=== PATIENT | female | born 1975 | race Caucasian/White ===

== ENCOUNTER 2020-02-29 20:05 | Emergency (ER) | payer OTHER, SELFPAY ==
--- NOTE | ~2020-02-29 | XR_ITS ---
EXAMINATION: XR chest 2V DATE: 02/29/2020 20:45 INDICATION: Chest pain and nausea TECHNIQUE: PA and lateral views of the chest were obtained. COMPARISON: None FINDINGS: Mild elevation of the left hemidiaphragm. Mild biapical pleural-parenchymal scarring. No other airspa ce opacities, pulmonary edema, pleural effusion or pneumothorax. The cardiomediastinal silhouette is normal. Visualized bones and soft tissues are unremarkable. IMPRESSION: 1. Mild elevation of the left hemidiaphragm. No acute cardiopulmonary disease. Reviewed, dictated and finalized at location A.
[2020-02-29 20:13] VITALS: BP 114/79; PULSE 83; RESP 23; TEMP 36.9; O2SAT 99
--- NOTE | 2020-02-29 20:16 | ECG_ITS ---
Measurements Intervals [place] Rate: 93 P: 52 [place]: 152 QRS: 39 QRSD: 78 T: 59 QT: 341 QTc: 425 Interpretive Statements SINUS RHYTHM POSSIBLE LEFT ATRIAL ENLARGEMENT BORDERLINE ECG Electronically Signed On 03-01-2020 6:57:19 CDT by Magdiel Hernandez D.O.
[2020-02-29 20:22] VITALS: BP 114/79; PULSE 87; PULSE 91; RESP 17; O2SAT 99
[2020-02-29] MEDS: ASPIRIN 81 MG CHEWABLE TABLET 324 MG PO (20:44)
--- NOTE | 2020-02-29 20:46 | PC.NURSE ---
Pt currently taken down to CT.
--- NOTE | 2020-02-29 20:57 | ED.CHESTPAIN ---
HPI - Chest Pain General Chief Complaint: Chest Pain Stated Complaint: cp Source: patient and family History of Present Illness HPI narrative: 44 years old white female complaining of sudden onset of diffuse chest discomfort, palpitation, tingling numbness of upper extremities, cold feeling all over her back, getting better on arrival to the emergency room. History of depression/anxiety, smoking, does not drink or abusing alcohol, no family history of coronary artery disease. Patient lift an 80 pound dog yesterday. Patient denies shortness of breath MD complaint: chest discomfort Review of Systems Review of Systems: Narrative: CONSTITUTIONAL: Denies fever, chills, or sweats. EYES: Denies visual changes, redness, or discharge. ENT: Denies rhinorrhea, congestion, sore throat, or otalgia. CARDIOVASCULAR: Denies chest pain, palpitations, or edema. RESPIRATORY: Denies cough or dyspnea. GASTROINTESTINAL: Denies abdominal pain, nausea, vomiting, or diarrhea. GENITOURINARY: Denies dysuria or hematuria. SKIN: Denies rash or itching. MUSCULOSKELETAL: Denies back pain, joint pain, or myalgia. NEUROLOGIC: Denies headache, numbness, or weakness. PSYCHIATRIC: Anxiety and depression PMFSH Social History Social History Gender identity (if verbalized by the patient): Female Exam Narrative: Exam Narrative: General appearance: Well-developed, well-nourished Skin: Normal color Head: Normocephalic, nontraumatic Eyes: Clear conjunctiva ENT: Oropharynx normal, ears normal, nose normal Neck: Supple, nontender Chest and respiratory: Airway patent, no respiratory distress, no accessory muscle use Heart: Regular rate/rhythm Abdomen: Soft, nontender, no organomegaly, quiet bowel sounds Vascular: Normal peripheral pulses, normal capillary refill. Musculoskeletal: Normal range of motion, nontender back Neurologic: Alert and oriented ?3, THERAPIST OCCUPATIONAL is normal as tested, no gross motor deficit Course Course Emergency Course: Resolved Vital Signs Vital signs: Vital Signs Temperature 36.9 C 02/29/20 20:13 Pulse Rate 83 02/29/20 20:13 Respiratory Rate 23 H 02/29/20 20:13 Blood Pressure 114/79 02/29/20 20:13 Pulse Oximetry 99 02/29/20 20:13 Temperature 36.9 C 02/29/20 20:13 Pulse Rate 91 02/29/20 20:22 Respiratory Rate 17 02/29/20 20:22 Blood Pressure 114/79 02/29/20 20:22 Pulse Oximetry 99 02/29/20 20:22 MDM - Chest Pain MDM Narrative Medical decision making narrative: Patient does not have any coronary artery risk factors except smoking, history of depression, her symptom on arrival consistent with acute anxiety attack, atypical chest pain and palpitation. My plan to get labs, EKG, chest x-ray. Further plan to follow also my plan to give patient Toradol and Ativan. On physical exam patient diffusely tender across the chest with light palpation. Could be secondary to lifting heavy dog yesterday. Differential Diagnosis Differential diagnosis: Likely atypical chest pain, costochondritis and other (Palpitation, anxiety reaction) ECG Data EKG #1: ECG completion date: 02/29/20 ECG completion time: 21:58 Interpretation: Normal sinus rhythm at 93 bpm, left atrial enlargement, otherwise normal EKG. Critical Care Time Critical Care Time Critical Care Time: No Discharge Plan Discharge Clinical Impression: Atypical chest pain, Anxiety Condition: Improved Instructions: Costochondritis (ED), Anxiety (ED) Prescriptions: New naproxen [EC-Naprosyn] 500 mg tablet,delayed release (DR/EC) 500 mg PO BID PRN (Reason: pain) Qty: 14 RF: 0 Follow-up/Referrals: [facility]
[2020-02-29 21:14] LABS: Basophils Percent Auto 0.3 % (0.2-1.2); Eosinophils Absolute Auto 0.1 K/mm3 (0-0.3); Eosinophils Percent Auto 0.8 % (0-4.4); Hemoglobin 12.5 g/dL (12.0-15.0); Immature Granulocyte Absolute 0.04 K/mm3 (0.00-0.031); Immature Granulocyte Percent A 0.3 % (0-0.5); Lymphocytes Absolute Auto 2.32 K/mm3 (0.9-3.2); Lymphocytes Percent Auto 18.4 % (18.3-44.2); Mean Corpuscular HGB Conc 33.8 g/dl (32-36); Mean Corpuscular Hemoglobin 32.4 pg (26-34); Mean Corpuscular Volume 95.9 fl (80-100); Mean Platelet Volume 9.4 fl (7.4-10.4); Monocytes Absolute Auto 0.5 K/mm3 (0.1-0.6); Monocytes Percent Auto 3.9 % (2.6-8.5); Neutrophils Absolute Auto 9.6 K/mm3 (1.3-6.7); Neutrophils Percent Auto 76.3 % (45.5-73.1); Platelet Count Result 377 k/mm3 (150-375); Red Blood Count 3.86 M/mm3 (4.2-5.4); Red Cell Distribution Width 14.3 % (11.5-14.5); White Blood Count 12.6 K/mm3 (4.5-10.0)
[2020-02-29 21:24] LABS: INR 3.1; Partial Thromboplastin Time 29.2 SECONDS (22.3-36.8); Prothrombin Time 31.1 Seconds (11.1-14.7)
[2020-02-29 21:25] LABS: Blood Urea Nitrogen 12 mg/dL (7-17); Calcium 8.8 mg/dL (8.4-10.2); Carbon Dioxide 29 mmol/L (22-30); Chloride 103 mmol/L (98-107); Estimated CRCL calculation 76 ml/min; Estimated Glomerular Filt Rate > 60; Glucose 117 mg/dL (65-105); Potassium 3.9 mmol/L (3.4-5.0); Sodium 139 mmol/L (137-145)
[2020-02-29 21:37] LABS: Troponin I < 0.012 ng/mL (0.000-0.034)
[2020-02-29] MEDS: KETOROLAC 30 MG/ML VIAL (*BKC) IV PUSH (21:41)
[2020-02-29] MEDS: LORAZEPAM INJ 2 MG/ML VIAL 1 MG IV PUSH (21:41)
[2020-02-29 21:44] VITALS: BP 121/97; PULSE 80; RESP 20; O2SAT 100
[2020-02-29 22:45] VITALS: BP 104/84; PULSE 92; RESP 20; O2SAT 98
== END 2020-02-29 20:25 | disposition home or self-care (01) ==
PROVIDERS: Emergency Provider Emergency Medicine
DX: R07.89 Other chest pain (principal); F41.9 Anxiety disorder, unspecified
CPT/HCPCS: 36415; 71046; 80048; 84484; 85025; 85610; 85730; 93005; 96374; 96375; 99284; A9270; J1885; J2060

== ENCOUNTER 2020-04-04 07:14 | Emergency (ER) | payer OTHER, SELFPAY ==
--- NOTE | ~2020-04-04 | CT_ITS ---
EXAMINATION: CT abdomen pelvis w con DATE: 04/04/2020 08:10 INDICATION: Right upper quadrant abdominal pain. Nausea. TECHNIQUE: Computed tomography (CT) of the abdomen and pelvis was performed with 100 mL Omnipaque 350 intravenous contrast. Automated exposure control and iterative reconstruction technique were employe d. The dose-length product was 232.59 mGy-cm. COMPARISON: None. FINDINGS: The visualized portions of the lung bases demonstrate mild atelectasis. No pleural effusion . The heart size is normal. No pericardial effusion. The liver, gallbladder, spleen, pancreas, adrena l glands, and kidneys are normal. There are no dilated loops of bowel. The appendix is normal. There are no pathologically enlarged lymph nodes. There is no free intraperitoneal fluid. There is mild tho racolumbar spondylosis. IMPRESSION: 1. No etiology for the patient's symptoms. Reviewed, dictated and finalized at location A.
--- NOTE | ~2020-04-04 | XR_ITS ---
EXAMINATION: XR chest 2V DATE: 04/04/2020 07:38 INDICATION: Chest tightness. TECHNIQUE: Frontal and lateral views of the chest were obtained. COMPARISON: Chest 2 views 02/29/2020 FINDINGS: There is mild scarring at the lung apices. No pleural effusion or pneumothorax. The heart s ize is normal. IMPRESSION: 1. Mild scarring at the lung apices. Reviewed, dictated and finalized at location A.
--- NOTE | 2020-04-04 07:17 | ECG_ITS ---
Measurements Intervals [place] Rate: 80 P: 58 [place]: 160 QRS: 18 QRSD: 78 T: 55 QT: 353 QTc: 408 Interpretive Statements SINUS RHYTHM POSSIBLE LEFT ATRIAL ENLARGEMENT BASELINE WANDER- II, AVF, V4-V6 BORDERLINE ECG Electronically Signed On 04-04-2020 8:55:55 CDT by Magdiel Hernandez D.O.
--- NOTE | 2020-04-04 07:17 | ED.CHESTPAIN ---
HPI - Chest Pain General Chief Complaint: Abdominal Pain Stated Complaint: Chest Pain, Abd Pain Time Seen by Provider: 04/04/20 07:17 Source: patient Mode of arrival: wheelchair Limitations: no limitations History of Present Illness HPI narrative: Patient is a 44-year-old female who presents for evaluation of chest and abdominal pain. Patient states that she has had several weeks of intermittently crampy then sharp abdominal pain located throughout her abdomen, mostly in the upper abdomen with radiation to her right shoulder. Patient states it is associated with nausea and diarrhea. Before COVID, her primary care provider Dr. Dyer had referred her to a director financial services, patient has never followed up. She denies history of abdominal surgery. No recent food indiscretions. No sick contacts at home. Patient also reports she developed some chest tightness this morning in the center of her chest with radiation into her left arm. Patient states she was at rest when she noticed the pain. She has had concurrent nausea in conjunction with the abdominal pain, she denies any diaphoresis or shortness of breath. No leg swelling or pain. Patient does smoke. No known history of coronary artery disease. Related Data Allergies Allergy/AdvReac Type Severity Reaction Status Date / Time codeine Allergy Itching Verified 04/04/20 07:31 Review of Systems Review of Systems: Narrative: CONSTITUTIONAL: Reports feeling feverish yesterday CARDIOVASCULAR: Reports chest pain, denies palpitations, or edema. RESPIRATORY: Denies cough or dyspnea. GASTROINTESTINAL: Reports abdominal pain, nausea, diarrhea GENITOURINARY: Denies dysuria or hematuria. SKIN: Denies rash or itching. MUSCULOSKELETAL: Denies back pain, joint pain, or myalgia. NEUROLOGIC: Denies headache, numbness, or weakness. [facility] Past Medical History Medical History (Updated 04/04/20 @ 11:05 by Cecilia Martinez MD) No pertinent past medical history Surgical History Surgical History (Updated 04/04/20 @ 07:33 by Cecilia Martinez MD) H/O wisdom tooth extraction Social History Social History (Updated 04/04/20 @ 07:33 by Cecilia Martinez MD) Smoking status: Current every day smoker Tobacco type: cigarettes Alcohol intake: never Substance use: never Gender identity (if verbalized by the patient): Female Exam Narrative: Exam Narrative: GENERAL: Awake, alert, anxious appearing HEAD: Normocephalic, atraumatic. EYES: PERRLA and EOMI. ENT: Nares clear, no rhinorrhea or epistaxis. Mucous membranes moist. NECK: Supple. CHEST: No respiratory distress, breathing even and non labored HEART: Regular rate, sinus rhythm ABDOMEN:Non distended, tender in the periumbilical, right upper quadrant, suprapubic area, no guarding or rebound, no rigidity EXTREMITIES: Normal range of motion. No edema. SKIN: Warm, dry, no rash. NEURO:No focal deficits. Alert and oriented x3 Course Vital Signs Vital signs: Vital Signs Temperature 36.4 C 04/04/20 07:24 Pulse Rate 82 04/04/20 07:24 Respiratory Rate 18 04/04/20 07:24 Blood Pressure 137/103 H 04/04/20 07:24 Pulse Oximetry 100 04/04/20 07:24 Temperature 36.4 C 04/04/20 07:24 Pulse Rate 74 04/04/20 10:23 Respiratory Rate 20 04/04/20 10:23 Blood Pressure 119/92 H 04/04/20 10:23 Pulse Oximetry 98 04/04/20 10:23 MDM - Chest Pain MDM Narrative Medical decision making narrative: Patient presented for evaluation of chronic abdominal pain and chest pain this morning. EKG without acute ischemic changes. Laboratory results notable for leukocytosis which may be due to stress/leukemoid reaction. Mild hypokalemia which were able to replenish orally. 2- troponins. No pleuritic pain, hypoxemia, tachycardia, making PE very unlikely. CT abdomen/pelvis shows no intra-abdominal pathology. At this point, patient may benefit closely from GI follow-up, symptomatic care for abdominal pain which due to the chronicity s
[2020-04-04 07:24] VITALS: BP 137/103; PULSE 82; RESP 18; TEMP 36.4; O2SAT 100
[2020-04-04 07:38] LABS: Basophils Percent Auto 0.3 % (0.2-1.2); Eosinophils Absolute Auto 0.1 K/mm3 (0-0.3); Hematocrit 39.1 % (37.0-47.0); Hemoglobin 13.3 g/dL (12.0-15.0); Immature Granulocyte Absolute 0.04 K/mm3 (0.00-0.031); Immature Granulocyte Percent A 0.3 % (0-0.5); Lymphocytes Absolute Auto 4.01 K/mm3 (0.9-3.2); Lymphocytes Percent Auto 28.2 % (18.3-44.2); Mean Corpuscular Hemoglobin 33.3 pg (26-34); Mean Corpuscular Volume 97.8 fl (80-100); Mean Platelet Volume 9.2 fl (7.4-10.4); Monocytes Absolute Auto 0.6 K/mm3 (0.1-0.6); Monocytes Percent Auto 4.5 % (2.6-8.5); Neutrophils Absolute Auto 9.4 K/mm3 (1.3-6.7); Neutrophils Percent Auto 65.7 % (45.5-73.1); Platelet Count Result 396 k/mm3 (150-375); Red Cell Distribution Width 13.1 % (11.5-14.5); White Blood Count 14.2 K/mm3 (4.5-10.0)
[2020-04-04 07:48] LABS: INR 1.1; Prothrombin Time 13.5 Seconds (11.1-14.7)
[2020-04-04 07:49] LABS: Alanine Aminotransferase 19 U/L (4-35); Albumin Level 4.5 g/dL (3.5-5.1); Alkaline Phosphatase 58 U/L (38-126); Aspartate Amino Transferase 22 U/L (14-36); Bilirubin,Total 0.3 mg/dL (0.2-1.3); Blood Urea Nitrogen 7 mg/dL (7-17); Calcium 9.2 mg/dL (8.4-10.2); Carbon Dioxide 27 mmol/L (22-30); Chloride 104 mmol/L (98-107); Estimated CRCL calculation 94 ml/min; Estimated Glomerular Filt Rate > 60; Glucose 76 mg/dL (65-105); Lipase 77 U/L (23-300); Partial Thromboplastin Time 30.3 SECONDS (22.3-36.8); Potassium 3.2 mmol/L (3.4-5.0); Sodium 139 mmol/L (137-145)
[2020-04-04] MEDS: MORPHINE SULFATE 4 MG/ML INJ IV PUSH (07:50)
[2020-04-04] MEDS: ONDANSETRON INJ 4 MG/2 ML VIAL IV PUSH (07:50)
[2020-04-04 07:58] LABS: Add Urine Microscopic? NO; Appearance Urine Clear (Clear); Bilirubin Urine Negative (Negative); Blood Urine Negative (Negative); Color Urine Colorless (Yellow); Glucose Urine UA Negative (Negative); Ketones Urine Negative (Negative); Leukocyte Esterase Ur Negative LEU/UL (Negative); Nitrate Urine Negative (Negative); Protein Urine Negative (Negative); Urobilinogen Urine Negative mg/dL (<2.0)
[2020-04-04 08:00] LABS: Specific Grav Ur 1.002 (1.001-1.035)
[2020-04-04 08:19] LABS: Troponin I < 0.012 ng/mL (0.000-0.034)
[2020-04-04] MEDS: POTASSIUM CHLORIDE 20 MEQ PACKET (FOR LIQUID) 40 MEQ PO (08:25)
[2020-04-04] MEDS: DICYCLOMINE HCL 10 MG CAPSULE 20 MG PO (08:56)
[2020-04-04 09:21] VITALS: BP 114/87; PULSE 66; RESP 18; O2SAT 98
[2020-04-04 10:23] VITALS: BP 119/92; PULSE 74; RESP 20; O2SAT 98
[2020-04-04 10:54] LABS: Troponin I < 0.012 ng/mL (0.000-0.034)
[2020-04-04 11:23] VITALS: BP 129/92; PULSE 62; RESP 16; O2SAT 99
== END 2020-04-04 11:24 | disposition home or self-care (01) ==
PROVIDERS: Emergency Provider Emergency Medicine
DX: R07.89 Other chest pain (principal); R10.84 Generalized abdominal pain; F17.219 Nicotine dependence, cigarettes, with unspecified nicotine-induced disorders
CPT/HCPCS: 36415; 71046; 74177; 80053; 81003; 81025; 83690; 84484; 85025; 85610; 85730; 93005; 96374; 96375; 99284; A9270; J2270; J2405; Q9967

== ENCOUNTER 2020-05-13 01:50 | Outpatient (CLI) | payer OTHER, SELFPAY ==
[2020-05-13 19:29] LABS: SARS-CoV-2 RNA PCR Negative
== END 2020-05-13 01:51 | disposition home or self-care (01) ==
LOC: ANHCOVIDDT 01:50
PROVIDERS: Visit Provider Internal Medicine Gastroenterology
DX: Z01.812 Encounter for preprocedural laboratory examination (principal); Z11.59 Encounter for screening for other viral diseases
CPT/HCPCS: 87635; C9803; U0003

== ENCOUNTER 2020-05-16 02:12 | Day surgery (SDC) | payer OTHER, SELFPAY ==
[2020-05-08 14:41] VITALS: BMI 20.8
[2020-05-16 10:06] VITALS: BP 135/92; PULSE 80; RESP 15; TEMP 36.2; O2SAT 99; BMI 19.1
[2020-05-16] MEDS: LACTATED RINGERS 1,000 ML 150 ML IV CONT (10:24)
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
[2020-05-16 12:18] VITALS: BP 103/62; PULSE 78; RESP 14; O2SAT 95
[2020-05-16 12:28] VITALS: BP 108/74; PULSE 69; RESP 20; O2SAT 100
[2020-05-16 12:38] VITALS: BP 125/85; PULSE 69; RESP 20; O2SAT 100
== END 2020-05-16 12:53 | disposition home or self-care (01) ==
PROVIDERS: Visit Provider Internal Medicine Gastroenterology
PROC: 0DJ08ZZ Inspection of Upper Intestinal Tract, Via Natural or Artificial Opening Endoscopic (ICD-10-PCS; CPT 43235; principal; 2020-05-16 11:15)
DX: Z12.11 Encounter for screening for malignant neoplasm of colon (principal); D12.2 Benign neoplasm of ascending colon; D12.4 Benign neoplasm of descending colon; D12.3 Benign neoplasm of transverse colon; D12.8 Benign neoplasm of rectum; K29.50 Unspecified chronic gastritis without bleeding; K29.40 Chronic atrophic gastritis without bleeding; K31.89 Other diseases of stomach and duodenum; K21.9 Gastro-esophageal reflux disease without esophagitis; F17.210 Nicotine dependence, cigarettes, uncomplicated; Z79.899 Other long term (current) drug therapy
CPT/HCPCS: 45385; 43239; 88305; J2001; J2704; J7120

== ENCOUNTER 2020-06-21 13:44 | Outpatient (CLI) | payer OTHER, SELFPAY ==
--- NOTE | ~2020-06-21 | MM_ITS ---
EXAMINATION: MM screening na BI w b[facility]nan HISTORY: Screening TECHNIQUE: Craniocaudal and mediolateral oblique 3-D tomosynthesis images were obtained and synthetic 2-D images were generated. CAD analysis was submitted and interpreted. COMPARISON: No prior mammogram is available for comparison at this institution. BREAST PARENCHYMAL COMPOSITION: The breasts are heterogeneously dense, which may obscure small masses . FINDINGS: There is focal asymmetry in the lower inner quadrant of the left breast anteriorly. There a re is no mammographic evidence for malignancy in the right breast. IMPRESSION: 1. Focal left breast asymmetry. 2. Additional mammographic views and possible breast ultrasound are recommended. BI-RADS Category 0: Incomplete: Needs additional imaging evaluation. Reviewed, dictated and finalized at location A. IMPRESSION: 1. Focal left breast asymmetry. 2. Additional mammographic views and possible breast ultrasound are recommended . BI-RADS Category 0: Incomplete: Needs additional imaging evaluation.
== END 2020-06-21 13:45 | disposition home or self-care (01) ==
LOC: ANHIMG 13:47
PROVIDERS: PCP Nurse Practitioner; Visit Provider Nurse Practitioner
DX: Z12.31 Encounter for screening mammogram for malignant neoplasm of breast (principal); R92.8 Other abnormal and inconclusive findings on diagnostic imaging of breast
CPT/HCPCS: 77063; 77067

== ENCOUNTER 2020-07-27 11:06 | Outpatient (CLI) | payer OTHER, SELFPAY ==
--- NOTE | ~2020-07-27 | MMUS_ITS ---
EXAMINATION: MM diagnostic mammo unilat LT, US breast LT limited HISTORY: Focal asymmetry of the left breast TECHNIQUE: Additional 3-D tomosynthesis images of the left breast were performed and synthetic 2-D im ages were generated. CAD analysis was submitted and interpreted. High resolution limited left breast ultrasound was performed. COMPARISON: 06/21/2020, 12/22/2014 FINDINGS: MAMMOGRAPHIC FINDINGS: No definite focal asymmetry persists with spot compression of the left breast. There is a 6 mm oval, obscured, equal density mass in the middle/posterior third of the breast at the 6:00 location 6.5 cm from the nipple. No suspicious calcification or architectural distortion are identified. ULTRASOUND: There is a 7 mm x 5 mm oval, circumscribed, parallel, hypoechoic mass with posterior acoustic enhance ment and no internal vascularity at the 6:00 location 5 cm from the nipple. A cyst is noted at the 3: 00 location 1 cm from the nipple. IMPRESSION: 1. Probably benign left breast mass. 2. Recommend 6 month follow-up left diagnostic mammogram and ultrasound. BI-RADS category 3, probably benign findings. Reviewed, dictated and finalized at location A. [employer]ALENE OPERATOR IMPRESSION: 1. Probably benign left breast mass. 2. Recommend 6 month follow-up left diagnostic mammogram and ultrasound. BI-RADS category 3, probably benign findings.
== END 2020-07-27 11:07 | disposition home or self-care (01) ==
PROVIDERS: PCP Nurse Practitioner; Visit Provider Nurse Practitioner
DX: N63.21 Unspecified lump in the left breast, upper outer quadrant (principal)
CPT/HCPCS: 76642; 77065

== ENCOUNTER 2021-03-18 15:24 | Emergency (ER) | payer OTHER, SELFPAY ==
--- NOTE | ~2021-03-18 | XR_ITS ---
EXAMINATION: XR foot RT 2V EXAM DATE: 03/18/2021 15:53 INDICATION: Initial encounter following injury, with pain of the right foot. Fall. TECHNIQUE: Frontal and lateral projections of the right foot. There is no prior study for compariso n. FINDINGS: Acute closed posttraumatic transverse fracture through the right 5th metatarsal shaft prox imal aspect, a Hammer type fracture. This type of fracture sometimes needs orthopedic fixation. There is overlying soft tissue swelling. Mild hallux valgus. IMPRESSION: 1. Acute right Hammer fracture; recommend orthopedic consult for follow-up. Reviewed, dictated and finalized at location A.
[2021-03-18 15:32] VITALS: BP 146/99; PULSE 122; RESP 18; TEMP 37.2; O2SAT 100
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
[2021-03-18] MEDS: HYDROcodone/acetaminophen (*CRX) 5-325 MG TABLET 1 TAB PO (16:57)
[2021-03-18 17:05] VITALS: BP 138/90; PULSE 99; RESP 20; O2SAT 100
== END 2021-03-18 17:06 | disposition home or self-care (01) ==
PROVIDERS: Emergency Provider Emergency Medicine; PCP Nurse Practitioner
DX: S92.351A Displaced fracture of fifth metatarsal bone, right foot, initial encounter for closed fracture (principal); X50.0XXA Overexertion from strenuous movement or load, initial encounter
CPT/HCPCS: 73620; 99284; A9270

== ENCOUNTER 2021-05-22 00:37 | Emergency (ER) | payer OTHER, SELFPAY ==
[2021-05-22] VITALS (8 sets, daily range): BP systolic 121–141; BP diastolic 80–95; PULSE 75–91; RESP 12–20; TEMP 37; O2SAT 95–99
--- NOTE | ~2021-05-22 | CT_ITS ---
EXAMINATION: CT abdomen pelvis w con DATE: 05/22/2021 02:44 INDICATION: Abdominal pain. TECHNIQUE: Computed tomography (CT) of the abdomen and pelvis was performed with 100 mL Omnipaque 350 intravenous contrast. Automated exposure control and iterative reconstruction technique were employe d. The dose-length product was 414.69 mGy-cm. COMPARISON: CT abdomen and pelvis 04/04/2020 FINDINGS: The visualized portions of the lung bases demonstrate mild atelectasis. No pleural effusion . The heart size is normal. No pericardial effusion. There is diffuse hepatic steatosis. The gallblad rachel, spleen, pancreas, adrenal glands, and kidneys are normal. There are no dilated loops of bowel. T he appendix is normal. There are no pathologically enlarged lymph nodes. There is no free intraperito briana fluid. There is mild thoracolumbar spondylosis. IMPRESSION: 1. Diffuse hepatic steatosis. Reviewed, dictated and finalized at location A.
[2021-05-22 01:31] LABS: Basophils Percent Auto 0.3 % (0.2-1.2); Eosinophils Absolute Auto 0.1 K/mm3 (0-0.3); Eosinophils Percent Auto 0.6 % (0-4.4); Hematocrit 39.5 % (37.0-47.0); Hemoglobin 13.3 g/dL (12.0-15.0); Immature Granulocyte Absolute 0.02 K/mm3 (0.00-0.031); Immature Granulocyte Percent A 0.2 % (0-0.5); Lymphocytes Absolute Auto 3.14 K/mm3 (0.9-3.2); Lymphocytes Percent Auto 33.2 % (18.3-44.2); Mean Corpuscular HGB Conc 33.7 g/dl (32-36); Mean Platelet Volume 9.1 fl (7.4-10.4); Monocytes Absolute Auto 0.6 K/mm3 (0.1-0.6); Monocytes Percent Auto 6.2 % (2.6-8.5); Neutrophils Absolute Auto 5.6 K/mm3 (1.3-6.7); Neutrophils Percent Auto 59.5 % (45.5-73.1); Platelet Count Result 402 k/mm3 (150-375); Red Blood Count 4.16 M/mm3 (4.2-5.4); Red Cell Distribution Width 12.6 % (11.5-14.5); White Blood Count 9.5 K/mm3 (4.5-10.0)
[2021-05-22 01:37] LABS: Alanine Aminotransferase 58 U/L (4-35); Albumin Level 4.5 g/dL (3.5-5.1); Alkaline Phosphatase 83 U/L (38-126); Anion Gap 8 mmol/L (8-16); Aspartate Amino Transferase 37 U/L (14-36); Bilirubin,Total 0.7 mg/dL (0.2-1.3); Blood Urea Nitrogen 11 mg/dL (7-17); Calcium 9.4 mg/dL (8.4-10.2); Carbon Dioxide 24 mmol/L (22-30); Chloride 107 mmol/L (98-107); Estimated CRCL calculation 94 ml/min; Estimated Glomerular Filt Rate > 60; Glucose 117 mg/dL (65-110); Lipase 116 U/L (23-300); Potassium 3.7 mmol/L (3.4-5.0); Sodium 139 mmol/L (137-145)
[2021-05-22 01:38] LABS: Add Urine Microscopic? YES; Appearance Urine Clear (Clear); Bacteria Urine Trace /hpf; Bilirubin Urine Negative (Negative); Blood Urine 1+ (Negative); Color Urine Straw (Yellow); Glucose Urine UA Negative (Negative); Ketones Urine Negative (Negative); Leukocyte Esterase Ur 2+ LEU/UL (Negative); Nitrate Urine Negative (Negative); Protein Urine Negative (Negative); Squamous Epithelial Cell Urine Few /hpf (Few); Urobilinogen Urine Negative mg/dL (<2.0); WBC Urine 0-3 /hpf
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
[2021-05-22 01:45] LABS: Specific Grav Ur 1.004 (1.001-1.035)
[2021-05-22] MEDS: KETOROLAC 30 MG/ML VIAL (*BKC) IV PUSH (02:16)
[2021-05-22] MEDS: ONDANSETRON INJ 4 MG/2 ML VIAL IV PUSH (02:17)
[2021-05-22] MEDS: SODIUM CHLORIDE 0.9% IV 1,000 ML 999 ML IV CONT (02:17)
--- NOTE | 2021-05-22 03:36 | ECG_ITS ---
Measurements Intervals [place] Rate: 79 P: 41 IA: 165 QRS: 13 QRSD: 77 T: 39 QT: 367 QTc: 423 Interpretive Statements SINUS RHYTHM LOW QRS VOLTAGE IN PRECORDIAL LEADS BASELINE ARTIFACT- I, II, III, AVR, AVL, AVF BORDERLINE ECG Electronically Signed On 05-22-2021 5:27:47 CDT by Magdiel Hernandez D.O.
[2021-05-22] MEDS: MORPHINE SULFATE (*CRX) 4 MG/ML INJ IV PUSH (03:58)
[2021-05-22] MEDS: MORPHINE SULFATE (*CRX) 2 MG/ML INJ IV PUSH (05:48)
[2021-05-22] MEDS: DICYCLOMINE HCL INJ 20 MG/2 ML VIAL IM (05:50)
[2021-05-22] MEDS: NITROFURANTOIN MONOHYD MACROCR 100 MG CAP PO (06:31)
== END 2021-05-22 06:37 | disposition home or self-care (01) ==
PROVIDERS: Emergency Provider Emergency Medicine; PCP Nurse Practitioner
DX: N39.0 Urinary tract infection, site not specified (principal); R10.11 Right upper quadrant pain
CPT/HCPCS: 36415; 74177; 80053; 81001; 81025; 83690; 85025; 93005; 96361; 96372; 96374; 96375; 96376; 99284; A9270; J0500; J1885; J2270; J2405; J7030; Q9967

== ENCOUNTER 2021-06-01 10:57 | Outpatient (CLI) | payer OTHER, SELFPAY ==
[2021-06-01 12:23] LABS: Iron 114 ug/dL (37-170)
[2021-06-01 12:33] LABS: Percent Iron Saturation 30 % (20-50)
[2021-06-01 12:47] LABS: Hepatitis B Surface Antigen Negative (Negative)
[2021-06-01 12:52] LABS: HAV RESULT Negative (Negative); Hepatitis B Core IgM Result Negative (Negative)
[2021-06-01 13:04] LABS: Hepatitis C Virus Antibody Negative (Negative)
[2021-06-04 21:22] LABS: Tissue Transglutaminase IgG Ab 1 U/mL (<6)
[2021-06-05 13:26] LABS: Tissue Transglutaminase IgA Ab 1 U/mL (<4)
[2021-06-05 22:10] LABS: Ceruloplasmin 34 mg/dL (18-53)
[2021-06-06 00:01] LABS: Mitochondrial (M2) Ab (IgG) <=20.0 U (<=20.0)
== END 2021-06-01 10:58 | disposition home or self-care (01) ==
LOC: ANHLAB 10:59
PROVIDERS: PCP Nurse Practitioner; Visit Provider Nurse Practitioner Family
DX: R74.8 Abnormal levels of other serum enzymes (principal)
CPT/HCPCS: 36415; 80074; 82104; 82390; 82728; 83516; 83520; 83540; 83550; 86038

== ENCOUNTER 2021-06-26 13:06 | Emergency (ER) | payer OTHER, SELFPAY ==
[2021-06-26 13:29] VITALS: BP 162/118; PULSE 115; RESP 16; TEMP 36.8; O2SAT 99
--- NOTE | 2021-06-26 16:00 | PC.NURSE ---
Pt states she experienced a rash 3 weeks ago after hospital visit, pt states a burning sensation to her right arm and under boob, pt also states at home she had repeated low temperatures at about 95F and her doctors office instructed her to get checked out, arrival to ER pt temp was normal,pt denied n/v and pain
[2021-06-26 16:20] LABS: Basophils Percent Auto 0.4 % (0.2-1.2); Eosinophils Percent Auto 0.3 % (0-4.4); Hematocrit 41.3 % (37.0-47.0); Hemoglobin 13.9 g/dL (12.0-15.0); Immature Granulocyte Absolute 0.03 K/mm3 (0.00-0.031); Immature Granulocyte Percent A 0.3 % (0-0.5); Lymphocytes Absolute Auto 2.46 K/mm3 (0.9-3.2); Lymphocytes Percent Auto 22.7 % (18.3-44.2); Mean Corpuscular HGB Conc 33.7 g/dl (32-36); Mean Corpuscular Hemoglobin 32.4 pg (26-34); Mean Corpuscular Volume 96.3 fl (80-100); Mean Platelet Volume 9.7 fl (7.4-10.4); Monocytes Absolute Auto 0.5 K/mm3 (0.1-0.6); Monocytes Percent Auto 4.7 % (2.6-8.5); Neutrophils Absolute Auto 7.8 K/mm3 (1.3-6.7); Neutrophils Percent Auto 71.6 % (45.5-73.1); Platelet Count Result 327 k/mm3 (150-375); Red Blood Count 4.29 M/mm3 (4.2-5.4); Red Cell Distribution Width 12.6 % (11.5-14.5); White Blood Count 10.8 K/mm3 (4.5-10.0)
[2021-06-26 16:26] LABS: Add Urine Microscopic? YES; Appearance Urine Clear (Clear); Bacteria Urine Trace /hpf; Bilirubin Urine Negative (Negative); Blood Urine 3+ (Negative); Color Urine Straw (Yellow); Glucose Urine UA Negative (Negative); Ketones Urine Negative (Negative); Leukocyte Esterase Ur Negative LEU/UL (Negative); Nitrate Urine Negative (Negative); Protein Urine Negative (Negative); RBC Urine 0-2 /hpf (0-2); Squamous Epithelial Cell Urine Occasional /hpf (Few); Urobilinogen Urine Negative mg/dL (<2.0); WBC Urine 0-3 /hpf
[2021-06-26 16:27] LABS: Specific Grav Ur 1.003 (1.001-1.035)
[2021-06-26 16:46] LABS: Alanine Aminotransferase 46 U/L (4-35); Alkaline Phosphatase 73 U/L (38-126); Anion Gap 12 mmol/L (8-16); Aspartate Amino Transferase 32 U/L (14-36); Bilirubin,Total 0.5 mg/dL (0.2-1.3); Blood Urea Nitrogen 7 mg/dL (7-17); Calcium 9.9 mg/dL (8.4-10.2); Carbon Dioxide 23 mmol/L (22-30); Chloride 107 mmol/L (98-107); Estimated CRCL calculation 90 ml/min; Estimated Glomerular Filt Rate > 60; Glucose 103 mg/dL (65-110); Lipase 78 U/L (23-300); Potassium 3.8 mmol/L (3.4-5.0); Sodium 142 mmol/L (137-145)
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
[2021-06-26 17:27] VITALS: BP 138/98; PULSE 84; RESP 16; O2SAT 98
== END 2021-06-26 17:40 | disposition home or self-care (01) ==
PROVIDERS: Physician Assistant; Emergency Provider Emergency Medicine; PCP Nurse Practitioner
DX: R10.9 Unspecified abdominal pain (principal); Z03.89 Encounter for observation for other suspected diseases and conditions ruled out
CPT/HCPCS: 36415; 80053; 81001; 83690; 85025; 99283

== ENCOUNTER 2021-07-09 08:16 | Outpatient (CLI) | payer OTHER, SELFPAY ==
[2021-07-10 10:52] LABS: Rapid Plasma Reagin Non-Reactive (NonReactive)
== END 2021-07-09 08:17 | disposition home or self-care (01) ==
LOC: ANHLAB 08:19
PROVIDERS: PCP Nurse Practitioner; Visit Provider Nurse Practitioner
DX: Z72.51 High risk heterosexual behavior (principal)
CPT/HCPCS: 36415; 86592

== ENCOUNTER 2021-07-31 11:49 | Outpatient (CLI) | payer OTHER, SELFPAY ==
--- NOTE | ~2021-07-31 | MMUS_ITS ---
EXAMINATION: MM diagnostic na BI w brennan, US breast BI limited HISTORY: Overdue follow-up for probably benign left breast mass TECHNIQUE: Craniocaudal, mediolateral, and mediolateral oblique 3-D tomosynthesis images of the brecassy ts were performed and synthetic 2-D images were generated. CAD analysis was submitted and interpreted . High resolution limited bilateral breast ultrasound was performed. COMPARISON: 07/27/2020, 06/21/2020, 12/22/2014 BREAST PARENCHYMAL COMPOSITION: The breasts are heterogeneously dense, which may obscure small masses . FINDINGS: MAMMOGRAPHIC FINDINGS: Right breast: There is a 10 mm oval, obscured, equal density mass in the anterior/middle third of inn er breast at the 3:00 location 4 cm from the nipple. No suspicious calcification or architectural dis tortion are identified. Left breast: There is a stable 6 mm oval, circumscribed, equal density mass in the posterior third of the breast at the 6:00 location 7 cm from the nipple. No suspicious calcification or architectural d istortion are identified. ULTRASOUND: Right breast: There is an 8 mm cyst at the 2:00 location 2 cm from the nipple corresponding to the ma mmographic finding in question. Left breast: The previously described mass at the 6:00 location as well as the appearance of a simple cyst (previously likely complicated cysts). There has been no suspicious interval change. A cyst is also noted at the 6:00 location 2 cm from the nipple. IMPRESSION: 1. No mammographic or sonographic evidence of malignancy. 2. Recommend routine screening mammography in one year. BI-RADS Category 2: Benign finding(s). Reviewed, dictated and finalized at location A. R TECHNICIAN IMPRESSION: 1. No mammographic or sonographic evidence of malignancy. 2. Recommend routine screening mammography in one year. BI-RADS Category 2: Benign finding(s).
== END 2021-07-31 11:50 | disposition home or self-care (01) ==
PROVIDERS: PCP Nurse Practitioner; Visit Provider Nurse Practitioner
DX: R92.8 Other abnormal and inconclusive findings on diagnostic imaging of breast (principal)
CPT/HCPCS: 76642; 77062; 77066; G0279

== ENCOUNTER 2021-08-29 09:48 | Outpatient (CLI) | payer OTHER, SELFPAY ==
--- NOTE | ~2021-08-29 | NM_ITS ---
EXAMINATION: NM hepatobiliary wo pharm DATE: 08/29/2021 12:25 INDICATION: Right upper quadrant abdominal pain. COMPARISON: CT abdomen and pelvis 05/22/2021 TECHNIQUE: 4.9 mCi Tc-99m mebrofenin (Choletec) was administered intravenously. Scintigraphic images of the abdomen were obtained for one hour. Then, the patient drank 8 oz Ensure, and imaging was cont inued for 60 minutes. FINDINGS: There is normal clearance of radiotracer from the blood pool. There is homogeneous tracer u ptake by the liver. Activity progresses to the bowel and gallbladder. Gallbladder ejection fraction (GBEF) was 50%. Note that with this technique, normal GBEF >= 33%. IMPRESSION: 1. Normal hepatobiliary scintigraphy. Reviewed, dictated and finalized at location A. DISPATCHER
== END 2021-08-29 09:49 | disposition home or self-care (01) ==
LOC: ANHIMG 09:53
PROVIDERS: PCP Nurse Practitioner; Visit Provider Nurse Practitioner Family
DX: R10.11 Right upper quadrant pain (principal)
CPT/HCPCS: 78226; A9537

== ENCOUNTER 2022-01-22 09:25 | Outpatient (CLI) | payer OTHER, SELFPAY ==
--- NOTE | ~2022-01-22 | NM_ITS ---
EXAM: NM gastric emptying study DATE: 01/22/2022 17:00 CDT INDICATION: Right upper quadrant pain TECHNIQUE: A gastric emptying study was performed using the methodology of Marcela ABDULLAHI, et al. J Nucl Med 2007; 48:568-572. The patient was given a meal consisting of 2 scrambled eggs labeled with 0.94 mCi Tc-99m sulfur colloid, 2 slices of toast, two packages of jam, and approximately 120 mL of water. Simultaneous anterior and posterior 1-min images of the abdomen were obtained with the patient supin e at multiple time points over a total period of 4 hours. The geometric mean of anterior and posterio r views was determined, and the percentage retention was calculated for each time point. COMPARISON: CT dated 05/22/2021. FINDINGS: Gastric retention of the radiotracer-labeled meal was 30%, 21%, and 2% at the 1-hour, 2-ho ur, and 4-hour time points, respectively. With this technique, apparent rapid gastric emptying is sug gested by <30% gastric retention at 1 hour. Delayed gastric emptying is defined by gastric retention of >90% at 1 hour, >60% retention at 2 hours, or >10% retention at 4 hours. IMPRESSION: 1. Normal gastric emptying. Reviewed, dictated and finalized at location A. IMPRESSION: 1. Normal gastric emptying.
== END 2022-01-22 09:26 | disposition home or self-care (01) ==
PROVIDERS: PCP Nurse Practitioner; Visit Provider Nurse Practitioner Family
DX: R10.11 Right upper quadrant pain (principal); R11.2 Nausea with vomiting, unspecified
CPT/HCPCS: 78264; A9541